=== PATIENT | female | born 1985 | race Two or more races ===

== ENCOUNTER 2018-08-23 17:44 | Emergency (ER) | payer SELFPAY ==
--- NOTE | 2018-08-23 17:59 | PDOC ---
Rapid Medical Evaluation Time Seen by Provider: 08/23/18 17:54 Medical Evaluation: 08/23/18 17:54 I have performed a brief in-person evaluation of this patient. The patient presents with a chief complaint of: 5 weeks , lower abdominal pain started today, LMP 07/19, , denies vag bldg, no OB established Pertinent physical exam findings: well appearing, mild tenderness to RLQ and suprapubic region I have ordered the following: labs, US, urine The patient will proceed to the ED for further evaluation.
[2018-08-23 18:10] VITALS: TEMP 98.2; BMI 19.4
[2018-08-23 18:57] LABS: BASO % 0.5 % (0-2.0); EOS % 0.5 % (0-4.5); HEMATOCRIT 37.4 % (32.4-45.2); HEMOGLOBIN 12.1 GM/dL (10.7-15.3); LYMPH % 26.9 % (8-40); MCH 31.3 pg (25.7-33.7); MCHC 32.3 g/dl (32.0-36.0); MEAN CELL VOLUME 96.9 fl (80-96); MEAN PLT VOLUME 9.6 fl (7.5-11.1); MONO % 4.9 % (3.8-10.2); NEUT % 67.2 % (42.8-82.8); PLATELET COUNT 196 K/MM3 (134-434); RBC 3.87 M/mm3 (3.60-5.2); RDW 13.7 % (11.6-15.6); WHITE BLOOD COUNT 7.5 K/mm3 (4.0-10.0)
[2018-08-23 19:32] LABS: ALBUMIN 4.2 g/dl (3.4-5.0); BILIRUBIN,TOTAL 0.6 mg/dL (0.2-1); CALCIUM 8.7 mg/dL (8.5-10.1); CREATININE 0.8 mg/dL (0.55-1.3); POTASSIUM 3.8 mmol/L (3.5-5.1); TOT PROT 7.6 g/dl (6.4-8.2)
--- NOTE | 2018-08-23 20:00 | PDOC ---
*Physical Exam - Vital Signs Last Vital Signs Temp Pulse Resp BP Pulse Ox 98.2 F 83 17 104/51 L 99 08/23/18 17:58 08/23/18 17:58 08/23/18 17:58 08/23/18 17:58 08/23/18 17:58 ED Treatment Course - LABORATORY CBC & Chemistry Diagram: 08/23/18 18:37 08/23/18 18:38 - ADDITIONAL ORDERS Additional order review: Laboratory Results 08/23/18 18:38 Sodium 137 Potassium 3.8 Chloride 107 Carbon Dioxide 25 Anion Gap 5 L BUN 9 Creatinine 0.8 Est GFR (CKD-EPI)AfAm 113.86 Est GFR (CKD-EPI)NonAf 98.24 Random Glucose 104 Calcium 8.7 Total Bilirubin 0.6 AST 8 L ALT 15 Alkaline Phosphatase 41 L Total Protein 7.6 Albumin 4.2 Beta HCG, Quant 493.2 08/23/18 18:37 RBC 3.87 MCV 96.9 H MCHC 32.3 RDW 13.7 MPV 9.6 Neutrophils % 67.2 Lymphocytes % 26.9 Monocytes % 4.9 Eosinophils % 0.5 Basophils % 0.5 Medical Decision Making - Medical Decision Making 08/23/18 20:00 Patient seen by the advanced practice provider under my direct supervision. Ancillary testing reviewed as necessary. I agree with plan as outlined by the advanced practice provider. *DC/Admit/Observation/Transfer Diagnosis at time of Disposition: Abdominal pain during Qualifiers: Trimester: first trimester Qualified Code(s): O26.891 - Other specified related conditions, first trimester - Discharge Dispostion Disposition: HOME Condition at time of disposition: Stable - Referrals Referrals: Deborah Bah MD [Staff Physician] - Nilton Francois MD [Staff Physician] - - Patient Instructions Additional Instructions: Thank you for choosing [facility]. It was a pleasure taking care of you. We were unable to confirm evidence of on your ultrasound Please return in 2 days to the ED for repeat blood work and ultrasound Return to the Emergency Department if your symptoms worsen or persist, have worsening abdominal pain, vaginal bleeding or other concerning symptoms. - Post Discharge Activity
[2018-08-23 21:07] LABS: PH,URINE 6.5 (5.0-8.0); URINE APPEARANCE CLEAR; URINE BILIRUBIN NEGATIVE (NEGATIVE); URINE COLOR YELLOW; URINE GLUCOSE (UA) NEGATIVE (NEGATIVE); URINE KETONE NEGATIVE (NEGATIVE); URINE LEUK ESTERASE NEGATIVE (NEGATIVE); URINE NITRITE NEGATIVE (NEGATIVE); URINE PROTEIN NEGATIVE (NEGATIVE); URINE UROBILINOGEN 0.2 mg/dL (0.2-1.0)
--- NOTE | 2018-08-23 21:55 | PDOC ---
History of Present Illness - General Chief Complaint: Pain, Acute Stated Complaint: ABDOMEN PAIN Time Seen by Provider: 08/23/18 17:54 History Source: Patient Exam Limitations: No Limitations Past History - Past Medical History Allergies/Adverse Reactions: Allergies Allergy/AdvReac Type Severity Reaction Status Date / Time No Known Allergies Allergy Verified 08/23/18 18:02 COPD: No CHF: No DVT: No - Reproductive History Is Patient Now?: Yes Para: 0 Polycystic Ovaries: Yes - Immunization History Immunization Up to Date: Yes - Suicide/Smoking/Psychosocial Hx Smoking History: Never smoked Information on smoking cessation initiated: No Hx Alcohol Use: No Drug/Substance Use Hx: No *Physical Exam - Vital Signs Last Vital Signs Temp Pulse Resp BP Pulse Ox 98.2 F 83 17 104/51 L 99 08/23/18 17:58 08/23/18 17:58 08/23/18 17:58 08/23/18 17:58 08/23/18 17:58 - Physical Exam General Appearance: No: Apparent Distress Respiratory/Chest: positive: Lungs Clear, Normal Breath Sounds. negative: Respiratory Distress Cardiovascular: positive: Regular Rhythm, Regular Rate, S1, S2. negative: Murmur Female Pelvic Exam: negative: vaginal bleeding Gastrointestinal/Abdominal: positive: Normal Bowel Sounds, Soft. negative: Tender, Distended, Guarding, Rebound Integumentary: positive: Normal Color Neurologic: positive: Alert, Normal Mood/Affect ED Treatment Course - LABORATORY CBC & Chemistry Diagram: 08/23/18 18:37 08/23/18 18:38 - ADDITIONAL ORDERS Additional order review: Laboratory Results 08/23/18 08/23/18 08/23/18 20:18 18:38 18:37 Sodium 137 Potassium 3.8 Chloride 107 Carbon Dioxide 25 Anion Gap 5 L BUN 9 Creatinine 0.8 Est GFR (CKD-EPI)AfAm 113.86 Est GFR (CKD-EPI)NonAf 98.24 Random Glucose 104 Calcium 8.7 Total Bilirubin 0.6 AST 8 L ALT 15 Alkaline Phosphatase 41 L Total Protein 7.6 Albumin 4.2 Beta HCG, Quant 493.2 Urine Color Yellow Urine Appearance Clear Urine pH 6.5 Ur Specific Chadron 1.015 Urine Protein Negative Urine Glucose (UA) Negative Urine Ketones Negative Urine Blood Negative Urine Nitrite Negative Urine Bilirubin Negative Urine Urobilinogen 0.2 Ur Leukocyte Esterase Negative Blood Type O POSITIVE Antibody Screen Negative 08/23/18 18:37 RBC 3.87 MCV 96.9 H MCHC 32.3 RDW 13.7 MPV 9.6 Neutrophils % 67.2 Lymphocytes % 26.9 Monocytes % 4.9 Eosinophils % 0.5 Basophils % 0.5 Medical Decision Making - Medical Decision Making 33 y/o F hx of ovarian cyst, appendectomy 2016, , LNMP 07/19/18, currently 5 weeks presents with lower abdominal pain which awoke patient this morning along with slight nausea. Pain lasted for a few minutes before subsiding on its own. Denies fever, sob, cp, vomiting, diarrhea, urinary complaints, vaginal bleeding. Patient was sent from [facility] for evaluation. Patient has not yet seen an [facility] doctor yet. Labs unremarkable Laboratory Tests 08/23/18 18:38 Beta HCG, Quant 493.2 Pelvic ultrasound shows no evidence of IUP L adnexal cyst noted Patient currently pain free Given low Bhcg, could be early Will have patient return to ED in 2 days for repeat blood work and ultrasound 08/23/18 21:50 *DC/Admit/Observation/Transfer Diagnosis at time of Disposition: Abdominal pain during Qualifiers: Trimester: first trimester Qualified Code(s): O26.891 - Other specified related conditions, first trimester; R10.9 - Unspecified abdominal pain - Discharge Dispostion Disposition: HOME Condition at time of disposition: Stable Decision to Admit order: No - Referrals Referrals: Deborah Bah MD [Staff Physician] - Nilton Francois MD [Staff Physician] - - Patient Instructions Additional Instructions: Thank you for choosing [facility]. It was a pleasure taking care of you. We were unable to confirm evidence of on your ultrasound Please return in 2 days to the ED for repeat blood work and ultrasound Return to the Emergency Department if your symptoms worsen or persist, have worsening abdominal pain, vaginal bleeding or other concerning symptoms. - Post Discharge Activity
[2018-08-23 21:58] VITALS: BP 109/56; PULSE 76
== END 2018-08-23 22:02 | disposition home or self-care (01) ==
LOC: JER 17:44
DX: O26.891 Other specified pregnancy related conditions, first trimester (principal); R10.30 Lower abdominal pain, unspecified; O34.81 Maternal care for other abnormalities of pelvic organs, first trimester; N83.292 Other ovarian cyst, left side; Z3A.01 Less than 8 weeks gestation of pregnancy
CPT/HCPCS: 36415; 76817-TC; 80053; 81003; 84702; 85025; 86850; 86900; 86901; 87086; 99282-25

== ENCOUNTER 2018-08-25 13:07 | Emergency (ER) | payer OTHER ==
[2018-08-25 13:17] VITALS: BP 123/41; PULSE 83; TEMP 99; BMI 19.3
--- NOTE | 2018-08-25 13:45 | PDOC ---
History of Present Illness - General Chief Complaint: [facility] Stated Complaint: REPEAT BLOOD WORK Time Seen by Provider: 08/25/18 13:34 History Source: Patient - History of Present Illness Initial Comments: 08/25/18 14:45 Chief complaint: Follow-up for hCG Patient is a 33-year-old female with no significant medical problems who is a about 5 weeks , seen in the ED 2 days ago with a quantitative of 493 and an ultrasound that showed no IUP and a left ovarian cyst. He shouldn't was having worse pain then, states that pain is more like a pressure, suprapubic. Patient's urine was negative on that visit. She has no fever, no bleeding, and otherwise feels well GENERAL/CONSTITUTIONAL: No fever, weakness. dizziness HEAD, EYES, EARS, NOSE AND THROAT: No change in vision. No ear pain or discharge. No sore throat. CARDIOVASCULAR: No chest pain RESPIRATORY: No shortness of breath or cough GASTROINTESTINAL: No pain, nausea, vomiting, diarrhea or constipation GENITOURINARY: No dysuria MUSCULOSKELETAL: No neck or back pain SKIN: No rash NEUROLOGIC: No headache, vertigo, loss of consciousness, or loss of sensation. GENERAL: The patient is awake, alert, and fully oriented, in no acute distress. HEAD: Normal with no signs of trauma. EYES: Pupils equal, round and reactive to light, sclera anicteric, conjunctiva clear. ENT: pharynx: no erythema, no exudate, uvula midline NECK: supple CHEST: clear, nontender, rr ABD: soft, mild suprapubic pressure with palpation EXTREMITIES: Normal range of motion, no edema. NEUROLOGICAL: Normal speech, normal gait. SKIN: Warm, Dry Past History - Past Medical History Allergies/Adverse Reactions: Allergies Allergy/AdvReac Type Severity Reaction Status Date / Time No Known Allergies Allergy Verified 08/25/18 13:14 Home Medications: Ambulatory Orders NK [No Known Home Medication] 08/25/18 COPD: No CHF: No DVT: No - Reproductive History Para: 0 Polycystic Ovaries: Yes - Immunization History Immunization Up to Date: Yes - Suicide/Smoking/Psychosocial Hx Smoking History: Never smoked Have you smoked in the past 12 months: No Information on smoking cessation initiated: No Hx Alcohol Use: No Drug/Substance Use Hx: No *Physical Exam - Vital Signs Last Vital Signs Temp Pulse Resp BP Pulse Ox 99 F 83 18 123/41 L 100 08/25/18 13:15 08/25/18 13:15 08/25/18 13:15 08/25/18 13:15 08/25/18 13:15 ED Treatment Course - RADIOLOGY Radiology Studies Ordered: Category Date Time Status TRANSVAGINAL US PREG [US] Stat Ultrasound 08/25/18 13:36 Ordered Medical Decision Making - Medical Decision Making 08/25/18 14:47 33-year-old , taking vitamins for repeat hCG which was 493 2 days ago. No IUP seen. Patient will get repeat quantitative hCG and ultrasound and reassess Ultrasound today is unchanged. Case discussed with Dr. Buenrostro, he agreed it is not clear where the origin of this is and needs close follow-up. He recommended patient come in on Tuesday for repeat evaluation and they can discuss it with him as he will be on all weekend. In the meanwhile patient was given copies of her labs and imaging and she will attempt to establish [facility]. 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 All these were understood and all questions were answered *DC/Admit/Observation/Transfer Diagnosis at time of Disposition: Pelvic pain affecting Qualifiers: Trimester: first trimester Qualified Code(s): O26.891 - Other specified related conditions, first trimester - Discharge Dispostion Disposition: HOME Condition at time of disposition: Stable - Referrals Referrals: Min Buenrostro MD [Staff Physician] - - Patient Instructions Printed Discharge Instructions: Ectopic Additional Instructions: It is not clear where you're is developing and you need to be closely watched to make sure this is not an ectopic which can cause severe bleeding and . You need to return to the ER in 2 days for repeat evaluation. This was discussed with the [facility] today. Return immediately if worsening pain, lightheadedness, dizziness or other concerns. - Post Discharge Activity
== END 2018-08-25 16:52 | disposition home or self-care (01) ==
LOC: JERFT 13:07
DX: O26.891 Other specified pregnancy related conditions, first trimester (principal); E28.2 Polycystic ovarian syndrome
CPT/HCPCS: 36415; 76817-TC; 84702; 99281-25

== ENCOUNTER 2018-08-28 10:05 | Emergency (ER) | payer OTHER | END 2018-08-28 13:15 | disposition home or self-care (01) | LOC: JERFT 10:05 → JER 13:27 ==

== ENCOUNTER 2018-08-31 13:30 | Emergency (ER) | payer OTHER | END 2018-08-31 17:26 | disposition home or self-care (01) | LOC: JERFT 13:30 ==